=== PATIENT | female | born 1955 | race Caucasian/White ===

== ENCOUNTER 2020-12-12 00:48 | Inpatient (IN) | payer OTHER ==
[~2020-12-12] VITALS: Ht 162.6 cm; Wt 41.3 kg
[2020-12-12 01:00] VITALS: BP 148/98
[2020-12-12] MEDS ORDERED: PROTONIX40 M3 PO (01:05)
[2020-12-12] MEDS ORDERED: OXYCODONE HCL 55 MG PO (01:06)
[2020-12-12] MEDS ORDERED: ONDANSETRON HCL4 M2 PO (01:06)
[2020-12-12] MEDS ORDERED: COLACE100 MG PO (01:07)
[2020-12-12 01:55] LABS: ABSOLUTE BASOPHILS 0.1 thou/uL (0.0-0.2); ABSOLUTE EOSINOPHILS 0.1 thou/uL (0.0-0.7); ABSOLUTE MONOCYTES 0.4 thou/uL (0.0-1.2); ABSOLUTE NEUTROPHILS 4.8 thou/uL (1.6-8.1); BASOPHILS 0.9 %; HEMATOCRIT 38.9 % (37.0-47.0); LYMPHOCYTES 15.8 %; MCH 28.9 pg (26.0-34.0); MCHC 33.5 g/dL (28.0-37.0); MCV 86.4 fL (80.0-100.0); MONOCYTES 6.3 %; MPV 9.1 fl. (7.2-11.1); NUCLEATED RBCS 0 /100WBC; PLATELET COUNT* 188 thou/uL (150-400); RDW-CV 17.9 % (10.5-14.5); WBC 6.3 thou/uL (4.0-11.0)
[2020-12-12 02:01] LABS: CALCIUM 8.8 mg/dL (8.5-10.1); CREATININE 0.5 mg/dL (0.6-1.3); POTASSIUM 3.8 mmol/L (3.5-5.1)
[2020-12-12 02:05] LABS: ALBUMIN 3.2 g/dL (3.4-5.0); MAGNESIUM 1.9 mg/dL (1.8-2.4); TOTAL BILIRUBIN 0.4 mg/dL (<0.1-1.0); TOTAL PROTEIN 7.4 g/dL (6.4-8.2)
[2020-12-12 04:07] LABS: URINE BILIRUBIN NEGATIVE (Negative); URINE BLOOD NEGATIVE (Negative); URINE CLARITY CLEAR; URINE COLOR YELLOW; URINE GLUCOSE-RANDOM NEGATIVE (Negative); URINE KETONES 1+ (Negative); URINE LEUKOCYTES-REFLEX 1+ (Negative); URINE NITRITE-REFLEX NEGATIVE (Negative); URINE PROTEIN NEGATIVE (Negative); URINE SPECIFIC GRAVITY 1.025 (1.005-1.030); URINE UROBILINOGEN 0.2 E.U./dl (0.2-1.0)
[2020-12-12 04:19] LABS: BACTERIA-REFLEX >30 Many /HPF (None Seen); COARSE GRANULAR CASTS 0-3 Few /LPF (None Seen); CRYSTALS None Seen /LPF (None Seen); FINE GRANULAR CASTS 0-3 Few /LPF (None Seen); MUCUS 4-6 Moderate strn/LPF (None Seen); SQUAMOUS 4-10 Moderate /LPF (0-3); TRANSITIONAL EPITHEL CELL 0-3 Few /LPF (None Seen); URINE RBC 3-10 Few /HPF (0-2); WBC CLUMPS Few (None Seen)
[2020-12-12 08:00] VITALS: BP 156/78; BP 168/95
[2020-12-12 16:03] VITALS: BP 165/88
[2020-12-12 20:00] VITALS: BP 151/71
[2020-12-13 08:01] VITALS: BP 149/74
--- NOTE | 2020-12-13 11:18 | EKG ---
[place] [address] ELECTROCARDIOGRAM REPORT Name: ALEX CASTILLON Room: [address] ADM IN M.R.#: [id number] Admission: 12/12/20 Attend Phys: Tyrell Menendez Discharge: Date of : 59 Date of Service: 12/12/20 0100 Report #: [id number] THIS REPORT FOR: //name// [facility] ED Test Date: 2020-12-12 Test Time: 01:00:27 Pat Name: ALEX CASTILLO Department: Room: [address] Gender: F Pals Specialist: ID : [id number] Requested By: Shayy Monet Order Number: [id number] Lalo MD: Matthew Chavez Measurements Intervals [place] Rate: 80 P: 73 [place]: 120 QRS: 53 QRSD: 85 T: 45 QT: 387 QTc: 447 Interpretive Statements Sinus rhythm No previous ECG available for comparison Electronically Signed On 12-13-2020 11:18:42 CDT by Matthew Chavez [email or web address] <ELECTRONICALLY SIGNED> By: Matthew Chavez MD, [facility] 12/13/20 1118 Matthew Chavez MD, [facility] /EPI
[2020-12-13 16:42] VITALS: BP 150/82
[2020-12-13 19:30] VITALS: BP 156/82
[2020-12-14 08:00] VITALS: BP 133/73
[2020-12-14 16:09] VITALS: BP 146/78
[2020-12-14 21:00] VITALS: BP 149/81
[2020-12-15 08:00] VITALS: BP 127/87
[2020-12-15 15:22] VITALS: BP 120/75
[2020-12-15 20:00] VITALS: BP 126/58
[2020-12-15 20:30] VITALS: BP 132/81
[2020-12-16 08:30] VITALS: BP 106/60
[2020-12-16 15:21] VITALS: BP 150/76
[2020-12-16 20:00] VITALS: BP 154/85
[2020-12-17 08:20] VITALS: BP 115/61
[2020-12-17 13:03] VITALS: BP 115/61
[2020-12-18] MEDS ORDERED: OXYCODONE HCL 55 MG PO (08:48)
[2020-12-18] MEDS ORDERED: ONDANSETRON HCL4 M2 PO (08:48)
== END 2020-12-17 13:48 | disposition hospice, home (50) | DRG 374 ==
LOC: M.ERS 00:48 → M.TBA-ER 05:40 → M.ORTHSURG 05:40
PROVIDERS: Personal Emergency Response Attendant; ADMIT Internal Medicine; ATTEND Internal Medicine
DX: C18.9 Malignant neoplasm of colon, unspecified (principal); E43 Unspecified severe protein-calorie malnutrition; Z68.1 Body mass index [BMI] 19.9 or less, adult; N39.0 Urinary tract infection, site not specified; J44.9 Chronic obstructive pulmonary disease, unspecified; Z51.5 Encounter for palliative care; Z90.49 Acquired absence of other specified parts of digestive tract; Z20.822 Contact with and (suspected) exposure to COVID-19; Z85.038 Personal history of other malignant neoplasm of large intestine; Z79.899 Other long term (current) drug therapy; Z87.891 Personal history of nicotine dependence